=== PATIENT | female | born 1965 | race American Indian/Alaskan Native ===

== ENCOUNTER 2020-10-16 11:00 | Emergency (ER) | payer OTHER ==
[2020-10-16] MEDS ORDERED: oxyCODONE /ACETAMINOPHEN 5-325MG TAB PO ONE (11:58)
--- NOTE | 2020-10-16 12:09 | Event Note ---
ED Screening Note Date of service: 10/16/20 Time: 12:07 ED Screening Note: This initial assessment/diagnostic orders/clinical plan/treatment(s) is/are subject to change based on patients health status, clinical progression and re- assessment by fellow clinical providers in the ED. Further treatment and workup at subsequent clinical providers discretion. Patient/guardian urged not to elope from the ED as their condition may be serious if not clinically assessed and managed. Initial orders include: 54-year-old female complaining of dental pain and right facial swelling x2 days. She denies any trauma or known injuries. Patient also denies any past medical history of hypertension her blood pressure currently is 190/109. She has moderate amount of right facial swelling.
[2020-10-16 12:45] LABS: Hematocrit 38.9 % (30.3-42.9); Hemoglobin 12.5 gm/dl (10.1-14.3); Mean Corpuscular HGB Conc 32 % (30-34); Mean Corpuscular Volume 82 fl (79-97); Platelet Count 230 K/mm3 (140-440); Red Blood Count 4.73 M/mm3 (3.65-5.03); Red Cell Distribution Width 15.5 % (13.2-15.2)
[2020-10-16 12:53] LABS: BUN/Creatinine Ratio 16; Blood Urea Nitrogen 13 mg/dL (7-17); Calcium 9.3 mg/dL (8.4-10.2); Hemolysis Index 2
[2020-10-16] MEDS ORDERED: dexAMETHasone 20 MG/5 ML VIAL IM ONE (13:30)
[2020-10-16] MEDS ORDERED: cloNIDine 0.1 MG TAB PO ONE (13:30)
--- NOTE | 2020-10-16 13:35 | Emergency Department Report ---
ED General Adult HPI - General Chief complaint: Dental/Oral Stated complaint: TOOTHACHE Time Seen by Provider: 10/16/20 13:20 Source: patient Mode of arrival: Ambulatory Limitations: No Limitations - History of Present Illness Initial comments: Patient is 54 years old female with no significant past medical history. Patient presented to the ER complaining of right upper dental pain for the last 3 days. Patient also stated that she started having swelling to the maxillary area this morning. Patient denied any fever or chills. Patient denied any d ifficulty swallowing or difficulty opening her mouth. Patient also found to have a blood pressure of 190/119. Patient stated that she was never told that she had blood pressure before. Patient currently denying any headache, neck pain, weakness, numbness or tingling sensation. No bowel or bladder incontinence. No chest pain or shortness of breath. -: days(s) Location: face Severity scale (0 -10): 8 Quality: stabbing Consistency: constant - Related Data Previous Rx's Medication Instructions Recorded Last Taken Type HYDROcodone/APAP 5-325 [Campbell 1 each PO Q6HR PRN #8 tablet 01/05/14 Unknown Rx 5/325 mg] Ibuprofen [Motrin] 600 mg PO Q8H PRN #15 tablet 01/05/14 Unknown Rx Allergies Allergy/AdvReac Type Severity Reaction Status Date / Time No Known Allergies Allergy Verified 01/05/14 00:30 ED Review of Systems ROS: Stated complaint: TOOTHACHE Other details as noted in HPI Comment: All other systems reviewed and negative Constitutional: denies: chills, fever ENT: dental pain. denies: throat pain Respiratory: denies: cough Cardiovascular: denies: chest pain, palpitations Gastrointestinal: denies: abdominal pain, nausea, vomiting Musculoskeletal: denies: back pain Neurological: denies: headache, weakness, numbness, paresthesias, confusion, abnormal gait ED Past Medical Hx - Past Medical History Previous Medical History?: Yes Hx Hypertension: Yes (no meds. States they never tell her to follow up) Hx Asthma: Yes - Surgical History Past Surgical History?: Yes Additional Surgical History: - Social History Smoking Status: Never Smoker Substance Use Type: None - Medications Home Medications: Home Medications Medication Instructions Recorded Confirmed Last Taken Type HYDROcodone/APAP 5-325 [Campbell 1 each PO Q6HR PRN #8 tablet 01/05/14 Unknown Rx 5/325 mg] Ibuprofen [Motrin] 600 mg PO Q8H PRN #15 tablet 01/05/14 Unknown Rx ED Physical Exam - General Limitations: No Limitations General appearance: alert, in no apparent distress - Head Head exam: Present: atraumatic, normocephalic, normal inspection - Eye Eye exam: Absent: periorbital swelling - ENT ENT exam: Present: other (Right maxillary area swelling with dental caries to the right upper teeth. No clinical evidence of Greg angina) - Neck Neck exam: Present: normal inspection, full ROM. Absent: tenderness, meningismus, lymphadenopathy, thyromegaly - Respiratory Respiratory exam: Present: normal lung sounds bilaterally - Cardiovascular Cardiovascular Exam: Present: regular rate, normal rhythm, normal heart sounds - GI/Abdominal GI/Abdominal exam: Present: soft, normal bowel sounds. Absent: distended, tenderness, guarding, rebound, rigid, organomegaly, mass, bruit, pulsatile mass, hernia - Extremities Exam Extremities exam: Present: normal inspection, full ROM, normal capillary refill. Absent: tenderness, pedal edema, calf tenderness - Back Exam Back exam: Present: normal inspection, full ROM. Absent: CVA tenderness (R), CVA tenderness (L) - Neurological Exam Neurological exam: Present: alert, oriented X3, CN II-XII intact - Psychiatric Psychiatric exam: Present: normal mood - Skin Skin exam: Present: warm, intact, normal color ED Course Vital Signs 10/16/20 10/16/20 11:15 12:22 Temperature 98.9 F Pulse Rate 90 Respiratory 22 20 Rate Blood Pressure 190/109 O2 Sat by Pulse 99 Oximetry ED Medical Decision Making - Lab Data Result diagrams: 10/16/20 12:08 10/16/20 12:08 - Medical Decision Making Patient is 54 years old female with no significant past medical history. Najma guaman presented to the ER complaining of right upper dental pain for the last 3 days. Patient also stated that she started having swelling to the maxillary area this morning. Patient denied any fever or chills. Patient denied any difficulty swallowing or difficulty opening her mouth. Patient also found to have a blood pressure of 190/119. Patient stated that she was never told that she had blood pressure before. Patient currently denying any headache, neck pain, weakness, numbness or tingling sensation. No bowel or bladder incontinence. No chest pain or shortness of breath. Patient given oxycodone for pain. Patient also received Decadron 10 mg IM to help with the swelling. Patient given clonidine 0.2 mg for blood pressure with significant improvement in pain and blood pressure. Patient given prescription for amoxicillin and advised to follow-up with her primary care physician in the next 2 to 3 days and to follow-up with her scheduled appointment with her dentist on Sunday. Patient advised to return to the ER if symptoms not improved or is getting worse. Critical care attestation.: If time is entered above; I have spent that time in minutes in the direct care of this critically ill patient, excluding procedure time. ED Disposition Clinical Impression: Dental abscess, Malignant hypertension Disposition: TO HOME OR SELFCARE Is pt being admited?: No Condition: Stable Instructions: Hypertension (ED), Hypertension, Adult, [id number], Dental Abscess, [id number] Referrals: PRIMARY CARE, [Primary Care Provider] - 3-5 Days
[2020-10-16 14:25] VITALS: BP 134/80
== END 2020-10-16 14:36 | disposition home or self-care (01) ==
LOC: ED 11:00
DX: K04.7 Periapical abscess without sinus (principal); I10 Essential (primary) hypertension; J45.909 Unspecified asthma, uncomplicated; Z98.890 Other specified postprocedural states; Z79.899 Other long term (current) drug therapy
CPT/HCPCS: 36415; 80048; 85027; 96372; 99283; J1100